=== PATIENT | female | born 1960 | race Caucasian/White ===

== ENCOUNTER 2023-10-13 09:30 | Day surgery (SDC) | payer BC ==
[2023-10-06 11:56] VITALS: BMI 27.0
[2023-10-13 11:16] VITALS: RESP 18
[2023-10-13 11:18] VITALS: BP 112/69; PULSE 77; TEMP 96.7
== END 2023-10-13 11:15 | disposition home or self-care (01) ==
LOC: FASU-ENDO 09:30
PROVIDERS: ATTEND Internal Medicine Gastroenterology
PROC: 0DBN8ZX Excision of Sigmoid Colon, Via Natural or Artificial Opening Endoscopic, Diagnostic (ICD-10-PCS; principal; 2023-10-13 10:20)
DX: Z12.11 Encounter for screening for malignant neoplasm of colon (principal); K63.5 Polyp of colon; K64.1 Second degree hemorrhoids; Z86.010 Personal history of colon polyps
CPT/HCPCS: 88305-TC